=== PATIENT | female | born 1990 | race Caucasian/White ===

== ENCOUNTER 2016-09-03 18:30 | Inpatient (IN) | payer OTHER ==
[~2016-09-03] VITALS: Ht 167.6 cm; Wt 131.8 kg
[2016-09-03] MEDS ORDERED: KETOROLAC 30 MG/1 ML ONE (18:42)
[2016-09-03 19:00] VITALS: BP 132/72
[2016-09-03] MEDS ORDERED: LACTATED RINGERS 1,000 ML IVBOLUS ONE (19:00)
[2016-09-03] MEDS ORDERED: LACTATED RINGERS 1,000 ML IV SCH (19:00)
[2016-09-03] MEDS ORDERED: FENTANYL PF 100 MCG/2ML IVPush ONE (19:00)
[2016-09-03] MEDS ORDERED: KETOROLAC 30 MG/1 ML IVPush ONE (19:00)
[2016-09-03] MEDS ORDERED: FENTANYL PF 100 MCG/2ML ONE ×2 (19:42→21:48)
[2016-09-03] MEDS ORDERED: ONDANSETRON 2MG/ML, 2ML ONE (19:49)
[2016-09-03] MEDS: ONDANSETRON 2MG/ML, 2ML IVPush PRN (19:51)
[2016-09-03] MEDS: CEFTRIAXONE PMX 1GM/50ML 50 ML IV SCH (20:24)
[2016-09-03] MEDS: LACTATED RINGERS 1,000 ML IV SCH (20:25)
[2016-09-03 20:34] LABS: HEMOGLOBIN 12.3 g/dL (11.7-16.4)
[2016-09-03 20:47] LABS: BLOOD UREA NITROGEN 10 mg/dL (7-18)
[2016-09-03] MEDS ORDERED: OXYcodone IR 5MG TABLET PO PRN (22:30)
[2016-09-03] MEDS ORDERED: OXYcodone IR 5MG TABLET ONE (23:11)
[2016-09-03] MEDS: OXYcodone IR 5MG TABLET PO PRN (23:13)
[2016-09-04] MEDS: LACTATED RINGERS 1,000 ML IV SCH ×4 (05:31→21:46)
[2016-09-04] MEDS ORDERED: OXYcodone 5 MG/5 ML ORAL.SOL UDC ONE (07:15)
[2016-09-04] MEDS ORDERED: OXYcodone IR 5MG TABLET ONE ×3 (07:17→16:48)
[2016-09-04] MEDS: OXYcodone IR 5MG TABLET PO PRN ×3 (07:28→16:52)
[2016-09-04] MEDS: CEFTRIAXONE PMX 1GM/50ML 50 ML IV SCH (08:02)
[2016-09-04] MEDS ORDERED: ONDANSETRON 2MG/ML, 2ML ONE (08:43)
[2016-09-04] MEDS: ONDANSETRON 2MG/ML, 2ML IVPush PRN (08:45)
[2016-09-04] MEDS ORDERED: ACETAMINOPHEN 325 MG TABLET ONE (16:46)
[2016-09-04] MEDS: ACETAMINOPHEN 325 MG TABLET PO PRN (16:52)
[2016-09-04] MEDS: D5%-LACTATED RINGERS 1,000 ML IV SCH (18:51)
[2016-09-05] MEDS ORDERED: ACETAMINOPHEN 325 MG TABLET ONE (00:22)
[2016-09-05] MEDS: ACETAMINOPHEN 325 MG TABLET PO PRN (00:24)
[2016-09-05] MEDS: D5%-LACTATED RINGERS 1,000 ML IV SCH (05:07)
[2016-09-05 08:26] VITALS: BP 129/72
[2016-09-05] MEDS ORDERED: OXYC5CAP4 PO (09:48)
[2016-09-05] MEDS ORDERED: TAMS-11 PO (09:50)
[2016-09-05 09:51] LABS: HEMOGLOBIN 10.5 g/dL (11.7-16.4)
== END 2016-09-05 10:39 | disposition home or self-care (01) | DRG 781 ==
LOC: LDOP 18:30 → OBSVTOIN 18:50 → LDIP 18:50
PROVIDERS: ADMIT Obstetrics & Gynecology; ATTEND Obstetrics & Gynecology
PROC: 0T9B70Z Drainage of Bladder with Drainage Device, Via Natural or Artificial Opening (ICD-10-PCS; principal; 2016-09-03)
DX: O23.03 Infections of kidney in pregnancy, third trimester (principal); N10 Acute pyelonephritis; Z68.42 Body mass index [BMI] 45.0-49.9, adult; N20.0 Calculus of kidney; N28.89 Other specified disorders of kidney and ureter; O99.213 Obesity complicating pregnancy, third trimester; E66.9 Obesity, unspecified; O26.893 Other specified pregnancy related conditions, third trimester; Z67.91 Unspecified blood type, Rh negative; Z3A.36 36 weeks gestation of pregnancy
CPT/HCPCS: 36415; 76770; 80048; 81001; 85025; 87086; J0696; J1885; J2405; J3010; G0378; J7120; J7121

== ENCOUNTER 2016-10-06 00:19 | Outpatient (CLI) | payer OTHER ==
[~2016-10-06] VITALS: Ht 167.6 cm; Wt 130.0 kg
[~2016-10-06 00:19] MED LIST: OXYC5CAP4 PO; TAMS-11 PO
[2016-10-06 00:44] VITALS: BP 128/87
[2016-10-06] MEDS ORDERED: ZOLPIDEM 10MG TABLET ONE (01:44)
[2016-10-06] MEDS ORDERED: ZOLPIDEM 10MG TABLET PO PRN (02:00)
[2016-10-06] MEDS ORDERED: PREN-3 PO (10:35)
== END 2016-10-06 01:52 | disposition home or self-care (01) ==
LOC: LDOP 00:19
PROVIDERS: ATTEND Student in an Organized Health Care Education/Training Program
DX: O62.9 Abnormality of forces of labor, unspecified (principal); O48.0 Post-term pregnancy; Z3A.40 40 weeks gestation of pregnancy
CPT/HCPCS: 59025; 99211; G0463

== ENCOUNTER 2016-10-06 07:54 | Inpatient (IN) | payer OTHER ==
[~2016-10-06] VITALS: Ht 167.6 cm; Wt 130.5 kg
[2016-10-06] MEDS ORDERED: OXYTOCIN 30U/ 0.9% NaCL 500ML 500 ML IV ONE (08:19)
[2016-10-06] MEDS ORDERED: LACTATED RINGERS 1,000 ML IV SCH (08:19)
[2016-10-06] MEDS ORDERED: FENTANYL PF 100 MCG/2ML IV PRN (08:30)
[2016-10-06] MEDS ORDERED: SODIUM CHLORIDE FLUSH 10ML SYR IVF PRN (08:30)
[2016-10-06] MEDS ORDERED: PLEASE ENTER HEIGHT AND WEIGHT MC SCH (08:30)
[2016-10-06] MEDS ORDERED: FENTANYL PF 100 MCG/2ML IVPush PRN (08:30)
[2016-10-06] MEDS ORDERED: ONDANSETRON 2MG/ML, 2ML IVPush PRN (08:30)
[2016-10-06] MEDS ORDERED: FENTANYL PF 100 MCG/2ML ONE ×2 (08:39→19:49)
[2016-10-06] MEDS ORDERED: LIDOCAINE 1%, 20ML ONE (09:32)
[2016-10-06] MEDS ORDERED: NEWBORN KIT ONE (09:33)
[2016-10-06] MEDS ORDERED: MISOPROSTOL 200 MCG TABLET ONE (09:33)
[2016-10-06] MEDS ORDERED: OXYTOCIN 30U/ 0.9% NaCL 500ML 500 ML ONE (09:33)
[2016-10-06] MEDS ORDERED: PREN-3 PO (10:35)
[2016-10-06] MEDS ORDERED: FENTANYL/BUPIV./NS/PF 250 ML EPIDCONT ONE (13:34)
[2016-10-06] MEDS: OXYTOCIN 30U/ 0.9% NaCL 500ML 500 ML IV PRN (15:07)
[2016-10-06] MEDS: LACTATED RINGERS 1,000 ML IV SCH (17:24)
[2016-10-06] MEDS ORDERED: FENTANYL/BUPIV./NS/PF 250 ML EPIDCONT SCH (17:24)
[2016-10-06] MEDS ORDERED: LACTATED RINGERS 1,000 ML IVBOLUS PRN (17:30)
[2016-10-06] MEDS ORDERED: LACTATED RINGERS 1,000 ML INTUTE SCH (17:30)
[2016-10-06] MEDS ORDERED: LACTATED RINGERS 1,000 ML INTUTE PRN (17:30)
[2016-10-06] MEDS ORDERED: TERBUTALINE 1 MG/ML, 1ML ONE (19:07)
[2016-10-06] MEDS ORDERED: TERBUTALINE 1 MG/ML, 1ML SQ PRN (20:00)
[2016-10-06] MEDS ORDERED: D5%-LACTATED RINGERS 1,000 ML IV SCH (20:00)
[2016-10-06] MEDS ORDERED: TERBUTALINE 1 MG/ML, 1ML IVPush PRN (20:00)
[2016-10-07] MEDS ORDERED: ACETAMINOPHEN 325 MG TABLET PO PRN
[2016-10-07] MEDS ORDERED: CALCIUM CARBONATE 500 MG TAB.CHEW PO PRN
[2016-10-07] MEDS ORDERED: HYDROcodone/APAP 5/325 TABLET PO PRN ×2
[2016-10-07] MEDS ORDERED: ONDANSETRON 2MG/ML, 2ML IV PRN
[2016-10-07] MEDS ORDERED: MISOPROSTOL 200 MCG TABLET PO PRN
[2016-10-07] MEDS: LACTATED RINGERS 1,000 ML IV SCH ×3 (01:24→17:24)
[2016-10-07 01:25] VITALS: BP 130/81
[2016-10-07] MEDS: OXYTOCIN 30U/ 0.9% NaCL 500ML 500 ML IV SCH ×3 (01:50→19:39)
[2016-10-07] MEDS ORDERED: LABETALOL 5MG/ML, 20ML IVPush ONE (02:00)
[2016-10-07 03:45] VITALS: BP 142/67
[2016-10-07 07:03] LABS: BLOOD UREA NITROGEN 4 mg/dL (7-18)
[2016-10-07 07:06] LABS: ASPARTATE AMINO TRANSFERASE 20 U/L (15-37)
[2016-10-07] MEDS: IBUPROFEN 600 MG TABLET PO PRN ×2 (07:11→16:57)
[2016-10-07] MEDS: DOCUSATE 100 MG CAPSULE PO PRN ×3 (07:11→23:36)
[2016-10-07 07:30] VITALS: BP 133/72
[2016-10-07] MEDS: PRENATAL VIT/IRON/FA 1 EACH TABLET PO SCH (08:44)
[2016-10-07 12:13] VITALS: BP 106/67
[2016-10-07 16:05] VITALS: BP 113/66
[2016-10-07] MEDS: OXYTOCIN 30U/ 0.9% NaCL 500ML 500 ML IV PRN ×3 (17:56→18:05)
[2016-10-07 19:20] VITALS: BP 137/78
[2016-10-08] MEDS: IBUPROFEN 600 MG TABLET PO PRN ×2 (01:07→08:56)
[2016-10-08] MEDS: LACTATED RINGERS 1,000 ML IV SCH (01:24)
[2016-10-08] MEDS: OXYTOCIN 30U/ 0.9% NaCL 500ML 500 ML IV SCH (05:39)
[2016-10-08] MEDS: PRENATAL VIT/IRON/FA 1 EACH TABLET PO SCH (08:56)
[2016-10-08] MEDS: DOCUSATE 100 MG CAPSULE PO PRN (08:56)
[2016-10-08 09:00] VITALS: BP 133/80
[2016-10-08] MEDS ORDERED: IBUP-1222 PO (13:15)
[2016-10-08] MEDS ORDERED: DOCU-30 PO (13:16)
== END 2016-10-08 15:35 | disposition home or self-care (01) | DRG 775 ==
LOC: LDOP 07:54 → EDIP 08:19 → LDIP 08:50 → 2NW 10-07 01:08
PROVIDERS: ADMIT Obstetrics & Gynecology; ATTEND Obstetrics & Gynecology
PROC: 10E0XZZ Delivery of Products of Conception, External Approach (ICD-10-PCS; principal; 2016-10-06)
PROC: 10907ZC Drainage of Amniotic Fluid, Therapeutic from Products of Conception, Via Natural or Artificial Opening (ICD-10-PCS; 2016-10-06)
PROC: 0HQ9XZZ Repair Perineum Skin, External Approach (ICD-10-PCS; 2016-10-06)
PROC: 00HU33Z Insertion of Infusion Device into Spinal Canal, Percutaneous Approach (ICD-10-PCS; 2016-10-06)
PROC: 3E0R3CZ (ICD-10-PCS; 2016-10-06)
DX: O99.214 Obesity complicating childbirth (principal); Z68.42 Body mass index [BMI] 45.0-49.9, adult; Z37.0 Single live birth; O63.0 Prolonged first stage (of labor); E66.01 Morbid (severe) obesity due to excess calories; O70.0 First degree perineal laceration during delivery; Z3A.40 40 weeks gestation of pregnancy; Z87.442 Personal history of urinary calculi
CPT/HCPCS: 36415; 80053; 82248; 84550; 85025; 86850; 86870; 86900; 86922; 86923; J3010; J2590; J3105; J7120